=== PATIENT | male | born 1960 | race Caucasian/White ===

== ENCOUNTER → 2018-10-11 | Outpatient (CLI) | payer MEDICAID ==
--- NOTE | 2018-10-12 08:38 | EST ---
EXERCISE STRESS AGE: 58 SEX: M HT: 71" WT: 210 PROTOCOL: Nahun Stress test STAGE: 3 DURATION OF EXERCISE: 9:00 HEART RATE REST: 66 BLOOD PRESSURE REST: 123/77 MAXIMUM HEART RATE ACHIEVED: 140 MAXIMUM BLOOD PRESSURE: 185/68 85% MPHR: 139 100% MPHR: 163 METS: 10.1 INDICATIONS: Syncope CLINICAL INFORMATION: This is a walking regular stress test. Date is 10/11/2018. Baseline EKG revealed normal sinus rhythm without significant ST-T changes. Patient walked on standard Nahun protocol for 9 minutes and achieved a maximal heart rate of 140 beats per minute, developed fatigue and shortness of breath but did not have any angina or arrhythmia. At rest, there were rare isolated PVCs noted. With exercise, patient did not have any angina or arrhythmia and EKG did not reveal any ST-segment changes to indicate ischemia. This is a negative stress test with good exercise capacity without symptoms of angina and there was no arrhythmia. MMERMA / GABINON: [id number] /
--- NOTE | 2018-10-12 11:04 | ECHOF ---
Referral Reason:[id number] Syncope MEASUREMENTS -------- HEIGHT: 182.9 cm WEIGHT: 95.3 kg BP: IVSd: 1.6 cm (0.6 - 1.1) LVIDd: 4.6 cm (3.9 - 5.3) LVPWd: 1.5 cm (0.6 - 1.1) IVSs: 2.1 cm LVIDs: 2.8 cm LVPWs: 2.2 cm LAESV Index (A-L): 14.38 ml/m Ao Diam: 3.1 cm (2.0 - 3.7) AV Cusp: 2.2 cm (1.5 - 2.6) LA Diam: 3.3 cm (2.7 - 3.8) MV EXCURSION: 15.271 mm (> 18.000) MV EF SLOPE: 118 mm/s (70 - 150) EPSS: 0.8 cm MV E Naif: 0.57 m/s MV DecT: 264 ms MV A Naif: 0.49 m/s MV E/A Ratio: 1.15 RAP: 5.00 mmHg RVSP: 21.00 mmHg FINDINGS -------- Sinus rhythm. This was a technically good study. The left ventricular size is normal. There is moderate concentric left ventricular hypertrophy. O verall left ventricular systolic function is normal with, an EF between 55 - 60 %. The right ventricle is normal in size. The left atrial size is normal. The right atrial size is normal. The aortic valve is trileaflet and appears structurally normal. There is trace mitral regurgitation. Trace tricuspid regurgitation present. The right ventricular systolic pressure, as measured by Dopp ler, is 21.00mmHg. Pulmonic valve appears structurally normal. The aortic root size is normal. Normal inferior vena cava with normal inspiratory collapse consistent with estimated right atrial pre ssure of 5 mmHg. There is no pericardial effusion. CONCLUSIONS -------- 1. Sinus rhythm. 2. This was a technically good study. 3. The left ventricular size is normal. 4. There is moderate concentric left ventricular hypertrophy. 5. Overall left ventricular systolic function is normal with, an EF between 55 - 60 %. 6. The right ventricle is normal in size. 7. The left atrial size is normal. 8. The right atrial size is normal. 9. The aortic valve is trileaflet and appears structurally normal. 10. There is trace mitral regurgitation. 11. Trace tricuspid regurgitation present. 12. The right ventricular systolic pressure, as measured by Doppler, is 21.00mmHg. 13. Pulmonic valve appears structurally normal. 14. The aortic root size is normal. 15. Normal inferior vena cava with normal inspiratory collapse consistent with estimated right atrial pressure of 5 mmHg. 16. There is no pericardial effusion. REPLANTING MACHINE OPERATOR: Yisel Shipley RDCS
== END | disposition home or self-care (01) ==
LOC: RADECHMAIN 08:06
PROVIDERS: ATTEND Internal Medicine Interventional Cardiology
DX: I51.7 Cardiomegaly (principal); R55 Syncope and collapse
CPT/HCPCS: 93017; 93306

== ENCOUNTER 2019-04-17 20:57 | Emergency (ER) | payer MEDICAID ==
[2019-04-17 21:02] VITALS: BP 150/79; PULSE 89; RESP 16; TEMP 97
[2019-04-17] MEDS ORDERED: DIPH,PERTUS(ACELL)TETVAC-LF 0.5 ML VIAL IM ONE (21:02)
[2019-04-17] MEDS ORDERED: LIDOCAINE 1% INJ 10MG/ML (20 ML MDV) SQ ONE (21:02)
[2019-04-17] MEDS ORDERED: CEPHALEXIN 500MG STARTER PACK 4 CAP BTL PO STA (21:12)
--- NOTE | 2019-04-17 21:13 | ED ---
Skin/Abscess/FB HPI - General Chief complaint: Skin/Abscess/Foreign Body Stated complaint: Fish [place] Time Seen by Provider: 04/17/19 21:02 Source: patient Mode of arrival: ambulatory Limitations: no limitations - History of Present Illness Initial comments: 59-year-old male presenting for fishhook to left thumb. Patient states he has 2 barbs lodged into the finger pad of his left thumb. Patient states he was unable to dislodge the barbs and presents emergency department for further evaluation states tetanus is up-to-date denies any limitation to range of motion or strength. Denies active bleeding. Review of systems negative. Upon arrival patient appears normal signs acute distress. She states injury occurred just prior to arrival - Related Data Previous Rx's Medication Instructions Recorded Cephalexin [Keflex] 500 mg PO Q8HR 5 Days #15 cap 04/17/19 Allergies Allergy/AdvReac Type Severity Reaction Status Date / Time No Known Allergies Allergy Verified 04/17/19 21:02 Review of Systems ROS Statement: Those systems with pertinent positive or pertinent negative responses have been documented in the HPI. ROS Other: All systems not noted in ROS Statement are negative. Past Medical History Past Medical History: No Reported History History of Any Multi-Drug Resistant Organisms: None Reported Additional Past Surgical History / Comment(s): neck surgery Past Psychological History: No Psychological Hx Reported Smoking Status: Never smoker Past Alcohol Use History: None Reported Past Drug Use History: None Reported General Exam - General Exam Comments Initial Comments: General: The patient is awake and alert, in no distress, and does not appear acutely ill. Eye: Pupils are equal, round and reactive to light, extra-ocular movements are intact. No nystagmus. There is normal conjunctiva bilaterally. No signs of icterus. Musculoskeletal: Normal ROM, no tenderness. Strength 5/5. Sensation intact. Radial pulses equal bilaterally 2+. Neurological: A&O x 3. CN II-XII intact, There are no obvious motor or sensory deficits. Coordination appears grossly intact. Speech is normal. Skin: Skin is warm and dry and no rashes. 2 barbs of a small 3 barbed fishhook lodged approximately a quarter centimeter into patient's skin. No active bleeding Psychiatric: Cooperative, appropriate mood & affect, normal judgment. Limitations: no limitations Course Vital Signs 04/17/19 21:00 Temperature 97 F L Pulse Rate 89 Respiratory 16 Rate Blood Pressure 150/79 O2 Sat by Pulse 97 Oximetry Medical Decision Making - Medical Decision Making 59-year-old male presenting to [facility] department for removal of fishhook. Area was locally anesthetized. I did, the fishhook into 2 pieces the 2 barbs. I then removed first the terri out of the skin. This was performed on both hooks Minimal bleeding. Patient tolerated procedure well. Given puncture wound patient be started on antibiotics prophylactically for infection area was cleansed. Bandage applied. Brisk infection signs of infection were discussed patient discharged appearing well Disposition Clinical Impression: Skin foreign body Disposition: HOME SELF-CARE Condition: Good Instructions (If sedation given, give patient instructions): Soft Tissue Foreign Body (ED) Additional Instructions: Please use medication as discussed. Please follow-up with family doctor in the next 2 days of symptoms have not improved. Please return to emergency room if the symptoms increase or worsen or for any other concerns. Prescriptions: Cephalexin [Keflex] 500 mg PO Q8HR 5 Days #15 cap Is patient prescribed a controlled substance at d/c from ED?: No Referrals: Tank Hernandez DO [Primary Care Provider] - 1-2 days Time of Disposition: 21:13
== END 2019-04-17 21:27 | disposition home or self-care (01) ==
LOC: EC 20:57
DX: S60.352A Superficial foreign body of left thumb, initial encounter (principal); X58.XXXA Exposure to other specified factors, initial encounter
CPT/HCPCS: 99283; 10120; J2001

== ENCOUNTER 2020-02-29 10:20 | Emergency (ER) | payer MEDICAID ==
[2020-02-29 10:31] VITALS: TEMP 98
[2020-02-29] MEDS ORDERED: SODIUM CHLORIDE 0.9% 500 ML 500 ML IV STA (10:54)
--- NOTE | 2020-02-29 10:57 | ED ---
Dizziness HPI - General Chief Complaint: Dizziness Stated Complaint: Dizziness/neck pain Time Seen by Provider: 02/29/20 10:35 Source: patient Mode of arrival: wheelchair Limitations: no limitations - History of Present Illness Initial Comments: Patient is a 60-year-old male presenting to the emergency Department with complaints of intermittent dizziness. Patient states he's been having these spells for 1-2 years. He did have a complete workup including cardiac consult about a year ago, with no acute findings. Patient states this morning approxim ately one hour prior to arrival, he was cooking at the stove when he had an episode of lightheadedness followed by nausea and sweating. Patient states this episode lasted approximately 10 minutes. He states he denies any chest pains during this episode, no shortness of breath. He currently takes no medications. He denies any chest pain, shortness of breath, fever, chills, nausea or vomiting at this time. He denies history of vertigo. He states that this episode he had a slight headache, but is no longer there. Denies history of trauma or falls. He has no further complaints at this time. Upon arrival to ER, his vital signs are stable. - Related Data Home Medications Medication Instructions Recorded Confirmed Ascorbic Acid [Vitamin C] 500 mg PO DAILY 02/29/20 02/29/20 Ibuprofen [Motrin Ib] 400 mg PO Q8H PRN 02/29/20 02/29/20 Multivitamins, Thera [Multivitamin 1 tab PO DAILY 02/29/20 02/29/20 (formulary)] [place]-3 Fatty Acids/Fish Oil [Fish 1 cap PO DAILY 02/29/20 02/29/20 Oil 1,000 mg Softgel] Allergies Allergy/AdvReac Type Severity Reaction Status Date / Time No Known Allergies Allergy Verified 02/29/20 11:44 Review of Systems ROS Statement: Those systems with pertinent positive or pertinent negative responses have been documented in the HPI. ROS Other: All systems not noted in ROS Statement are negative. Past Medical History Past Medical History: No Reported History History of Any Multi-Drug Resistant Organisms: None Reported Additional Past Surgical History / Comment(s): neck surgery tumor removal Past Psychological History: No Psychological Hx Reported Smoking Status: Never smoker Past Alcohol Use History: None Reported Past Drug Use History: None Reported General Exam - General Exam Comments Initial Comments: GENERAL: Patient is well-developed and well-nourished. Patient is nontoxic and in no acute distress. HEAD: Atraumatic, normocephalic. EYES: Pupils equal round and reactive to light, extraocular movements intact, sclera anicteric, conjunctiva are normal. Eyelids were unremarkable. ENT: TMs normal, nares patent, oropharynx clear without exudates. Moist mucous membranes. NECK: Normal range of motion, supple without lymphadenopathy or JVD. LUNGS: Unlabored respirations. Breath sounds clear to auscultation bilaterally and equal. No wheezes rales or rhonchi. HEART: Regular rate and rhythm without murmurs, rubs or gallops. ABDOMEN: Soft, nontender, normoactive bowel sounds. No guarding, no rebound. No masses appreciated. : Deferred MUSCULOSKELETAL: Normal extremities with adequate strength and normal range of motion, no pitting or edema. No clubbing or cyanosis. NEUROLOGICAL: Patient is alert and oriented x 3. Motor and sensory are also intact. Cranial nerves II through XII grossly intact. Symmetrical smile. Normal speech, normal gait. PSYCH: Normal mood, normal affect. SKIN: Warm, Dry, normal turgor, no rashes or lesions noted. Limitations: no limitations Course Vital Signs 02/29/20 10:28 Temperature 98.0 F Pulse Rate 73 Respiratory 18 Rate Blood Pressure 145/81 O2 Sat by Pulse 98 Oximetry EKG Findings - EKG Comments: EKG Findings:: Sinus bradycardia otherwise normal ECG, no signs of acute ischemia. Ventricular rate 51, DE interval 150, QT 424. Similar to previous EKG on 10/11/2018. Medical Decision Making - Medical Decision Making Patient is a 60-year-old male here for intermittent dizziness for the past 1-2 years with an acute episode lasting approximately 10 minutes today with associated nausea and diaphoresis. His vital signs are stable, slightly bradycardia. He states this is normal for him for the past 1-2 years. He denies any pain at this time. His exam is unremarkable. EKG shows sinus bradycardia, otherwise normal. Patient's lab workup is unremarkable, troponin is normal, urinalysis normal, no signs of infection. Patient has been asymptomatic here in the ER. Continues to deny chest pain, shortness of breath, nausea. I discussed with patient that I recommended admitting patient for cardiac consult and further workup. Patient states he does not want to stay in the hospital, as he has been dealing with this for the past 1-2 years. Patient will follow-up with Dr. Hughes within the next week. Patient states he has a lready discussed with cardiology that patient may get a Holter monitor. Patient is stable for discharge. Return parameters were discussed with the patient and patient's and they both verbalized understanding. Case discussed with Dr. Sheffield. - Lab Data Result diagrams: 02/29/20 11:00 02/29/20 11:00 Lab Results 02/29/20 02/29/20 02/29/20 Range/Units 11:00 11:00 11:00 WBC 6.4 (3.8-10.6) k/uL RBC 5.33 (4.30-5.90) m/uL Hgb 15.8 (13.0-17.5) gm/dL Hct 49.3 (39.0-53.0) % MCV 92.4 (80.0-100.0) fL MCH 29.6 (25.0-35.0) pg MCHC 32.1 (31.0-37.0) g/dL RDW 12.1 (11.5-15.5) % Plt Count 209 (150-450) k/uL Neutrophils % 60 % Lymphocytes % 27 % Monocytes % 6 % Eosinophils % 5 % Basophils % 1 % Neutrophils # 3.8 (1.3-7.7) k/uL Lymphocytes # 1.7 (1.0-4.8) k/uL Monocytes # 0.4 (0-1.0) k/uL Eosinophils # 0.3 (0-0.7) k/uL Basophils # 0.1 (0-0.2) k/uL PT 10.4 (9.0-12.0) sec INR 1.0 (<1.2) Sodium (137-145) mmol/L Potassium (3.5-5.1) mmol/L Chloride (98-107) mmol/L Carbon Dioxide (22-30) mmol/L Anion Gap mmol/L BUN (9-20) mg/dL Creatinine (0.66-1.25) mg/dL Est GFR (CKD-EPI)AfAm (>60 ml/min/1.73 sqM) Est GFR (CKD-EPI)NonAf (>60 ml/min/1.73 sqM) Glucose (74-99) mg/dL Calcium (8.4-10.2) mg/dL Total Bilirubin (0.2-1.3) mg/dL AST (17-59) U/L ALT (4-49) U/L Alkaline Phosphatase (38-126) U/L Troponin I (0.000-0.034) ng/mL Total Protein (6.3-8.2) g/dL Albumin (3.5-5.0) g/dL Urine Color Yellow Urine Appearance Clear (Clear) Urine pH 5.0 (5.0-8.0) Ur Specific [place] 1.024 (1.001-1.035) Urine Protein Negative (Negative) Urine Glucose (UA) Negative (Negative) Urine Ketones Negative (Negative) Urine Blood Negative (Negative) Urine Nitrite Negative (Negative) Urine Bilirubin Negative (Negative) Urine Urobilinogen <2.0 (<2.0) mg/dL Ur Leukocyte Esterase Negative (Negative) 02/29/20 02/29/20 Range/Units 11:00 11:00 WBC (3.8-10.6) k/uL RBC (4.30-5.90) m/uL Hgb (13.0-17.5) gm/dL Hct (39.0-53.0) % MCV (80.0-100.0) fL MCH (25.0-35.0) pg MCHC (31.0-37.0) g/dL RDW (11.5-15.5) % Plt Count (150-450) k/uL Neutrophils % % Lymphocytes % % Monocytes % % Eosinophils % % Basophils % % Neutrophils # (1.3-7.7) k/uL Lymphocytes # (1.0-4.8) k/uL Monocytes # (0-1.0) k/uL Eosinophils # (0-0.7) k/uL Basophils # (0-0.2) k/uL PT (9.0-12.0) sec INR (<1.2) Sodium 137 (137-145) mmol/L Potassium 4.8 (3.5-5.1) mmol/L Chloride 107 (98-107) mmol/L Carbon Dioxide 22 (22-30) mmol/L Anion Gap 8 mmol/L BUN 15 (9-20) mg/dL Creatinine 0.68 (0.66-1.25) mg/dL Est GFR (CKD-EPI)AfAm >90 (>60 ml/min/1.73 sqM) Est GFR (CKD-EPI)NonAf >90 (>60 ml/min/1.73 sqM) Glucose 161 H (74-99) mg/dL Calcium 9.0 (8.4-10.2) mg/dL Total Bilirubin 0.9 (0.2-1.3) mg/dL AST 34 (17-59) U/L ALT 28 (4-49) U/L Alkaline Phosphatase 85 (38-126) U/L Troponin I <0.012 (0.000-0.034) ng/mL Total Protein 6.8 (6.3-8.2) g/dL Albumin 4.1 (3.5-5.0) g/dL Urine Color Urine Appearance (Clear) Urine pH (5.0-8.0) Ur Specific [place] (1.001-1.035) Urine Protein (Negative) Urine Glucose (UA) (Negative) Urine Ketones (Negative) Urine Blood (Negative) Urine Nitrite (Negative) Urine Bilirubin (Negative) Urine Urobilinogen (<2.0) mg/dL Ur Leukocyte Esterase (Negative) Disposition Clinical Impression: Dizziness, Nausea Disposition: HOME SELF-CARE Condition: Stable Instructions (If sedation given, give patient instructions): Dizziness (ED) Additional Instructions: Please return to the Emergency Department if symptoms worsen or any other c oncerns. Follow-up with cardiology as discussed within the next week. Is patient prescribed a controlled substance at d/c from ED?: No Referrals: Tank Hernandez DO [Primary Care Provider] - 1-2 days Roz Hughes MD [STAFF PHYSICIAN] - 1-2 days
[2020-02-29 11:15] LABS: Appearance,Urine Clear (Clear); Bilirubin,Urine Negative (Negative); Blood,Urine Negative (Negative); Color,Urine Yellow; Glucose,Urine (UA) Negative (Negative); Ketones,Urine Negative (Negative); Leukocyte Esterase,Urine Negative (Negative); Nitrite,Urine Negative (Negative); Protein,Urine Negative (Negative); Specific Gravity,Urine 1.024 (1.001-1.035); Urobilinogen,Urine <2.0 mg/dL (<2.0)
[2020-02-29 11:24] LABS: ALT 28 U/L (4-49); AST 34 U/L (17-59); African American GFR (CKD) >90 (>60 ml/min/1.73 sqM); Albumin 4.1 g/dL (3.5-5.0); Alkaline Phosphatase 85 U/L (38-126); Anion Gap 8 mmol/L; Blood Urea Nitrogen 15 mg/dL (9-20); Carbon Dioxide 22 mmol/L (22-30); Chloride 107 mmol/L (98-107); Glucose 161 mg/dL (74-99); Non-African American GFR(CKD) >90 (>60 ml/min/1.73 sqM); Sodium 137 mmol/L (137-145); Total Bilirubin 0.9 mg/dL (0.2-1.3); Total Protein 6.8 g/dL (6.3-8.2)
[2020-02-29 11:30] LABS: Potassium 4.8 mmol/L (3.5-5.1)
[2020-02-29 11:32] LABS: Basophils # (A) 0.1 k/uL (0-0.2); Basophils % (A) 1 %; Eosinophils # (A) 0.3 k/uL (0-0.7); Eosinophils % (A) 5 %; HCT 49.3 % (39.0-53.0); HGB 15.8 gm/dL (13.0-17.5); Lymphocytes # (A) 1.7 k/uL (1.0-4.8); Lymphocytes % (A) 27 %; MCH 29.6 pg (25.0-35.0); MCHC 32.1 g/dL (31.0-37.0); MCV 92.4 fL (80.0-100.0); Mean Platelet Volume 7.2; Monocytes # (A) 0.4 k/uL (0-1.0); Monocytes % (A) 6 %; Neutrophils # (A) 3.8 k/uL (1.3-7.7); Neutrophils % (A) 60 %; Platelet Count 209 k/uL (150-450); RBC 5.33 m/uL (4.30-5.90); RDW 12.1 % (11.5-15.5); WBC 6.4 k/uL (3.8-10.6)
[2020-02-29 11:40] LABS: Prothrombin Time 10.4 sec (9.0-12.0)
[2020-02-29 12:48] VITALS: BP 132/89; PULSE 89; RESP 16
== END 2020-02-29 12:46 | disposition home or self-care (01) ==
LOC: EC 10:20
DX: R42 Dizziness and giddiness (principal); R11.0 Nausea; R61 Generalized hyperhidrosis; R00.1 Bradycardia, unspecified
CPT/HCPCS: 36415; 80053; 81003; 84484; 85025; 85610; 93005; 96360; 99284